=== PATIENT | female | born 1970 | race Caucasian/White ===

== ENCOUNTER → 2016-09-06 | Outpatient (CLI) | payer OTHER ==
--- NOTE | 2016-09-09 08:31 | ECHO ---
DATE OF PROCEDURE: 09/06/2016 DATE OF : 1970 AGE: 46 REFERRING PROVIDER: IZAIAH Wilkins. REASON FOR ECHOCARDIOGRAM: Right atrial enlargement. 2D MEASUREMENTS: IVS: 0.9 cm LV: 4.8 cm LVPW: 0.9 cm LA: 3.8 cm Aorta: 2.8 cm IVC: 2.1 cm DOPPLER MEASUREMENTS: Peak velocity across the aortic valve: 1.3 m/s Peak velocity across the LVOT: 1.3 m/s Mitral E: 0.72 Mitral A: 0.5 Ratio 1.4 2D COMMENTS: 1. Normal left ventricular size, wall thickness and normal global left ventricular systolic function. The estimated left ventricular systolic ejection fraction is 65% to 70%. 2. Normal left atrium. The right atrium may be minimally enlarged in limited views. Normal right ventricle. 3. The atrial septum appeared to be normal without evidence of defect or shunt. 4. Normal aortic root. 5. No pericardial effusion seen. 6. Minimally calcified aortic valve with normal leaflet excursion. Mildly calcified mitral annulus with normal anterior mitral valve leaflet motion. Normal tricuspid valve. The pulmonic valve and proximal pulmonary artery branches were not well visualized. 7. The inferior vena cava was mildly enlarged, central venous pressure mildly elevated. DOPPLER: It detects trace aortic regurgitation, noted in limited views. Mild mitral regurgitation, and trace tricuspid regurgitation also noted in limited views. Assessment of the left ventricular diastolic function appeared to be normal. IMPRESSION: 1. Normal global left ventricular systolic function. Left ventricular diastolic function also appeared to be normal. 2. Aortic valve sclerosis with trace aortic regurgitation. 3. Mitral annulus calcification with mild mitral regurgitation. 4. No intracardiac shunt detected.
== END ==
LOC: M CARPUL 09:01
PROVIDERS: ATTEND Physician Assistant
DX: I51.7 Cardiomegaly (principal)

== ENCOUNTER → 2016-12-30 | Outpatient (CLI) | payer OTHER ==
--- NOTE | 2017-01-23 14:30 | REPMRS ---
Patient History The patient states she has not had a clinical breast exam in over a year. No known family history of cancer. Digital Mammo Screening Bilat: December 30, 2016 - Exam #: [id number] Bilateral CC and MLO view(s) were taken. Technologist: Bailee Ndiaye, Technologist Prior study comparison: September 06, 2014, digital bilateral screening mammo, performed at [place], [place]. FINDINGS: The breast tissue is heterogeneously dense. This may lower the sensitivity of mammography. There has been no change in the appearance of the mammogram from the prior studies. There is a moderate amount of residual fibroglandular tissue which is fairly symmetric. There is no interval development of dominant mass, areas of architectural distortion, or clustered microcalcification typical of malignancy. ASSESSMENT: BI-RADS/ACR category 1 mammogram. Negative. Recommendation Routine screening mammogram in 1 year (for women over age 40). This mammogram was interpreted with the aid of an FDA-approved computer-aided dectection system. Electronically Signed By: Yusef Young MD 01/23/17 0722
== END ==
LOC: M RAD 11:40
PROVIDERS: ATTEND Family Medicine
DX: Z12.31 Encounter for screening mammogram for malignant neoplasm of breast (principal); R92.8 Other abnormal and inconclusive findings on diagnostic imaging of breast